=== PATIENT | female | born 1990 | race Caucasian/White ===

== ENCOUNTER 2018-03-19 00:03 | Emergency (ER) | payer SELFPAY ==
[2018-03-19 00:09] VITALS: TEMP 37.1; Ht 160 cm
[2018-03-19] MEDS ORDERED: LIDOCAINE 1% BUFFERED INJ 20 ML VIAL ONE (00:15)
[2018-03-19] MEDS ORDERED: CEPH500C PO (01:36)
[2018-03-19] MEDS ORDERED: CEPHALEXIN 500MG HOME PACK 1 EA BTL PO ONE (01:45)
[2018-03-19 01:46] VITALS: BP 95/59; PULSE 62; O2SAT 97
--- NOTE | 2018-03-19 02:00 | EMERGENCY ROOM VISIT NOTE ---
History Report prepared by Yoana: Noah Mason Under the Supervision of: Dr. Brody Hart M.D. First contact with patient: 00:18 Chief Complaint: LACERATION/CUT (SUT/DERMABOND) Stated Complaint: KNIFE THROUGH FOOT Nursing Triage Summary: Pt presents with laceration to base of right middle toe. States happened approx 2330. Pt states, "I went to pick something up off the counter and there was a knife sticking to it and it fell on my foot." Bleeding controlled upon arrival. History of Present Illness The patient is a 27 year old female who presents to the Emergency Room with complaints of a laceration to her right foot occurring at about 23:30. The patient reports that she was in the kitchen when a long, skinny, sharp, and nonserrated knife slid off of the counter, hit her foot, and bounced off. The patient denies a significant medical history. She notes that her last tetanus shot was within the past 10 years. The patient denies holes on the soles of her feet. She notes numbness and tingling from the knee down. The patient rates her current pain as 9/10. Source of History: patient Onset: about 23:30 Position: foot (right) Symptom Intensity: 9/10 Quality: other (laceration) Associated Symptoms: + numbness (and tingling from knee down) Review of Systems See HPI for pertinent positives and negatives. A total of six systems were reviewed and were otherwise negative. Past Medical & Surgical Medical Problems: (1) Abdominal pain (2) Bronchitis (3) Ovarian cyst (4) Pneumonia Family History FHx: cancer Lung disease Social History Smoking Status: Current Every Day Smoker Smokeless Tobacco Use: Yes Alcohol Use: none Marital Status: in relationship Housing Status: lives with significant other Occupation Status: employed Current/Historical Medications Scheduled Cephalexin Monohydrate (Keflex), 500 MG PO QID Allergies Coded Allergies: No Known Allergies (Unverified , 07/06/15) Physical Exam Vital Signs Date Time Temp Pulse Resp B/P (MAP) Pulse Ox O2 Delivery O2 Flow Rate FiO2 03/19/18 01:46 62 18 95/59 97 03/19/18 00:09 37.1 87 20 136/69 99 Room Air Physical Exam GENERAL: Awake, alert, well-appearing, in no distress MUSCULOSKELETAL: Atraumatic. Chest examination reveals no tenderness. The back is symmetrical on inspection without obvious abnormality. There is no CVA tenderness to palpation. No joint edema. There is a 2 cm laceration to the base of the 3rd toe on the dorsal aspect of the right foot. Good cap refill. Extensor tendon and flexor tendon function normal of the right foot. NEURO: There is some slight subjective tingling to the lateral aspect of the distal third toe otherwise the right foot is neurologically intact. Medical Decision & Procedures ER Provider Diagnostic Interpretation: 3 view x-ray of the right foot per my review shows: No fracture. No dislocation. No foreign body. Medications Administered Medications (Trade) Dose Ordered Sig/Rito Route Start Time Stop Time Status Last Admin Dose Admin Cephalexin Monohydrate (Keflex 500MG Home Pack) 1 homepack NOW ONCE PO 03/19/18 01:45 03/19/18 01:46 DC 03/19/18 01:44 1 HOMEPACK Procedure LACERATION REPAIR Location: base of 3rd toe of dorsal right foot Total length: 2 cm Complexity: intermediate Verbal consent was obtained after the risks and benefits were explained, including but not limited to bleeding, scarring, infection, pain, and bone/joint /nerve damage. At this time, the risks of the procedure are less than the risks of NOT performing the procedure. A time out was taken and the correct patient and site identified. The skin was prepped with betadine. The target area was anesthetized with 3 ml of 1% lidocaine without epinephrine. Copious irrigation was performed using saline. The skin was re-prepped with betadine and a sterile field set. The wound was explored for foreign bodies and none found. Examination revealed a small fernanda in the extensor complex of the third digit. There is a laceration down to, involving, but not completely through the MTP joint of the third toe. Debridement was not performed. The deep tissue above the joint capsule and tendon was approximated with 1, 5-0 Vicryl simple suture. The wound edges were approximated using 4, 5-0 simple interrupted nylon sutures. Hemostasis and excellent approximation was achieved. Antibacterial ointment and a sterile dressing applied. Detailed wound care instructions and signs and symptoms of infection reviewed with the patient. No complications and the patient tolerated the procedure well. ED Course 0024: The patient was evaluated in room B3B. A complete history and physical exam was performed. 0056: I performed a laceration repair on the patient. 0135: I reevaluated the patient. Discussed results and discharge instructions: She verbalized understanding and agreement. The patient is ready for discharge. 0145: Ordered Keflex 500 MG 1 homepack PO Medical Decision Patient presents with a laceration of the right foot. A knife fell straight onto the foot. There was a laceration present. She has some subjective tingling in the distal lateral aspect of the third toe. It is possible that she injured the digital nerve. She has good cap refill. Examination under anesthesia after x-ray imaging was negative revealed that she did have a small injury to the extensor complex. She had good tendon function. There was also injury to the MTP joint capsule. The wound was copiously irrigated. She had one deep suture placed and 4 simple superficial sutures close the wound. She was given Keflex here in the ER and prescription was sent for a total of 5 days. Wound instructions were outlined. The patient feels comfortable with the plan. She will return in 10 days for suture removal. I did discuss possible need for orthopedic referral if she has any issues with the tendon function in the future. I gave my usual and customary discussion regarding this issue. The patient was educated about the findings as listed above. All questions were answered and the patient was pleased with the treatment. Return instructions were outlined and the patient was discharged in stable condition. Medication Reconcilliation Current Medication List: was personally reviewed by me Blood Pressure Screening Patient's blood pressure: Normal blood pressure Blood pressure disposition: Did not require urgent referral Impression Primary Impression: Laceration of right foot Scribe Attestation The scribe's documentation has been prepared under my direction and personally reviewed by me in its entirety. I confirm that the note above accurately reflects all work, treatment, procedures, and medical decision making performed by me. Departure Information Dispostion Home / Self-Care Prescriptions Cephalexin Monohydrate (Keflex) 500 Mg Cap 500 MG PO QID, #16 CAP Prov: Brody Hart MD 03/19/18 Referrals No Doctor, Assigned (PCP) Forms HOME CARE DOCUMENTATION FORM, IMPORTANT VISIT INFORMATION Patient Instructions My [facility] Additional Instructions WOUND CARE INSTRUCTIONS: Bacitracin to wounds once daily. Cephalexin(Keflex) 500mg: Take one pill four times daily for 5 days for your skin wound. All antibiotics can cause diarrhea. If this occurs and you feel worse or it does not resolve in 1-2 days follow up with your doctor or return to the Emergency Department as this could be signs of serious underlying problems. Any medication can cause an allergic reaction, stop the pills immediately and return to the ER for rash, hives, breathing difficulties, or swelling. Use a non-stick dressing such as a large band-aid. Change the dressings once a day. Tylenol as needed for pain. Allow your wounds to air dry several hours per day when you are resting, but it is a good idea to keep them covered while sleeping to prevent irritation and the sheets sticking to the wound. Do not get the wound wet for the next 24 hours. Afterwards lightly cleansing with soap and water is okay. Do not soak the wound until sutures are out. Apply direct pressure for any bleeding. Return to the ER immediately for spreading redness, fevers, pus-like drainage, severe pain, or as needed. Return to the ER in 10 days for suture removal, or sooner as needed.
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
== END 2018-03-19 01:46 | disposition home or self-care (01) ==
LOC: C.EDB 00:04
DX: M77.9 Enthesopathy, unspecified (principal); R03.0 Elevated blood-pressure reading, without diagnosis of hypertension; E11.9 Type 2 diabetes mellitus without complications; E66.01 Morbid (severe) obesity due to excess calories; Z90.49 Acquired absence of other specified parts of digestive tract; Z80.9 Family history of malignant neoplasm, unspecified; Z83.3 Family history of diabetes mellitus; Z82.49 Family history of ischemic heart disease and other diseases of the circulatory system; Z79.84 Long term (current) use of oral hypoglycemic drugs; Z79.899 Other long term (current) drug therapy

== ENCOUNTER 2018-03-29 20:15 | Emergency (ER) | payer OTHER ==
[~2018-03-29] VITALS: Ht 162.6 cm; Wt 68.9 kg
[~2018-03-29 20:15] MED LIST: CEPH500C PO
[2018-03-29 20:28] VITALS: TEMP 36.7; Ht 162.6 cm; Wt 68.9 kg
[2018-03-29 21:08] VITALS: BP 113/66; PULSE 60; O2SAT 99
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
== END 2018-03-29 21:10 | disposition home or self-care (01) ==
LOC: C.EDB 20:16 → C.EDD 21:10
DX: S91.311D Laceration without foreign body, right foot, subsequent encounter (principal); X58.XXXD Exposure to other specified factors, subsequent encounter